=== PATIENT | male | born 1975 | race Caucasian/White ===

== ENCOUNTER 2018-06-26 16:08 | Outpatient (CLI) | payer BC, SELFPAY ==
--- NOTE | 2018-06-26 15:04 | DI.RAD_ITS ---
SYMPTOMS/DIAGNOSIS: ACUTE LEFT ANKLE PAIN AND SWELLING, M13.197, MONOARTHRITIS , NOT ELSEWHERE CLASSIFIED, UNSPECIFIED ANKLE AND FOOT LEFT ANKLE: There is soft tissue swelling around the malleoli. No fracture or ankle mortise widening is seen. The joint space is well maintained. There is a small heel spur. IMPRESSION: Soft tissue swelling and small heel spur.
[2018-06-26 15:31] LABS: Bilirubin Small (Negative); Blood Negative (Negative); Clarity Clear; Glucose Negative (Negative); Ketones Trace mg/dL (Negative); Leukocyte Esterase Trace (Negative); Nitrite Negative (Negative); Specific Gravity 1.025 (1.005-1.025); Urobilinogen 0.2 EU/dL (Up TO 0.2); pH 5.5 (5-8)
[2018-06-26 15:34] LABS: Abs Immature Grans 0.02 k/cumm (0.0-0.09); Absolute Basophil Count 0.05 k/cumm (0.0-0.2); Absolute Eosinophil Count 0.24 k/cumm (0.0-0.7); Absolute Lymphocyte Count 2.88 k/cumm (1.2-3.4); Absolute Monocyte Count 0.67 k/cumm (0.11-0.7); Absolute Neutrophil Count 4.58 k/cumm (1.2-6.7); Basophils % 0.6; Eosinophils % 2.8; HCT 49.3 % (40.0-50.0); HGB 16.6 g/dL (13.5-17.5); Immature Grans % 0.2; Lymphocytes % 34.1; Mean Corp. HGB Concentration 33.7 g/dL (32.0-36.0); Mean Corpuscular Hemoglobin 30.9 pg (27.0-33.0); Mean Corpuscular Volume 91.6 fL (80-95); Mean Platelet Volume 10.7 fL (8.0-11.0); Monocytes % 7.9; Neutrophils % 54.4; Platelet Count 289 x1000/uL (130-400); RBC 5.38 m/cumm (4.50-6.00); RBC Distribution Width 13.6 % (11.8-14.1); White Blood Cell Count 8.44 k/cumm (4.4-10.8)
[2018-06-26 15:47] LABS: Bacteria Rare HPF (Negative); C & S Indicated? No/Sq. Contamination; Casts Negative LPF (Negative); Crystals Negative HPF (Negative); Epithelial Cells Many HPF (Negative); Mucus Moderate (Negative)
[2018-06-26 17:04] LABS: ALT 25 U/L (12-78); AST 17 U/L (15-37); Albumin 3.8 g/dL (3.4-5.0); Alkaline Phosphatase 91 U/L (46-116); Anion Gap 11.6 mmol/L (3-11); BUN 12 mg/dL (7-18); Bilirubin, Total 0.3 mg/dL (0.2-1.0); CO2 25.4 mmol/L (21.0-32.0); CREATININE 0.85 mg/dL (0.70-1.30); Calcium 8.8 mg/dL (8.5-10.1); Chloride 106 mmol/L (98-107); Glucose 92 mg/dL (70-100); Potassium 4.4 mmol/L (3.5-5.1); Sodium 143 mmol/L (136-145); Uric Acid 8.3 mg/dL (3.5-7.2)
[2018-06-26 18:47] LABS: ESR 10 MM/HR (0-15)
[2018-06-29 13:03] LABS: Lyme Ab w Rflx to Lyme Confirm Negative
== END 2018-06-26 16:28 ==
PROVIDERS: PCP Family Medicine; Visit Provider Family Medicine
DX: M25.572 Pain in left ankle and joints of left foot (principal); M13.172 Monoarthritis, not elsewhere classified, left ankle and foot; M77.32 Calcaneal spur, left foot; M79.89 Other specified soft tissue disorders
CPT/HCPCS: 36415; 80053; 85652; 73610; 81003; 81015; 84550; 85025; 86618

== ENCOUNTER 2018-07-17 02:53 | Outpatient (CLI) | payer BC, SELFPAY ==
[2018-07-17 12:27] LABS: Bilirubin Negative (Negative); Blood Negative (Negative); Clarity Clear; Glucose Negative (Negative); Ketones Negative (Negative); Leukocyte Esterase Trace (Negative); Nitrite Negative (Negative)
[2018-07-17 12:39] LABS: Bacteria Moderate HPF (Negative); C & S Indicated? No/Sq. Contamination; Casts Negative LPF (Negative); Crystals Negative HPF (Negative); Epithelial Cells Moderate HPF (Negative); Mucus Moderate (Negative); RBC Negative (0-2); WBC >50 HPF (0-5)
== END 2018-07-17 03:13 ==
PROVIDERS: PCP Family Medicine; Visit Provider Family Medicine
DX: M10.9 Gout, unspecified (principal); R82.90 Unspecified abnormal findings in urine
CPT/HCPCS: 81003; 81015; 87086

== ENCOUNTER 2019-08-23 11:33 | Outpatient (CLI) | payer BC, SELFPAY ==
[2019-08-23 12:59] LABS: Abs Immature Grans 0.02 k/cumm (0.0-0.09); Absolute Basophil Count 0.04 k/cumm (0.0-0.2); Absolute Eosinophil Count 0.18 k/cumm (0.0-0.7); Absolute Lymphocyte Count 2.37 k/cumm (1.2-3.4); Absolute Monocyte Count 0.57 k/cumm (0.11-0.7); Absolute Neutrophil Count 6.06 k/cumm (1.2-6.7); Basophils % 0.4; Eosinophils % 1.9; HCT 53.2 % (40.0-50.0); HGB 17.5 g/dL (13.5-17.5); Immature Grans % 0.2; Lymphocytes % 25.6; Mean Corp. HGB Concentration 32.9 g/dL (32.0-36.0); Mean Corpuscular Hemoglobin 30.8 pg (27.0-33.0); Mean Corpuscular Volume 93.5 fL (80-95); Mean Platelet Volume 11.6 fL (8.0-11.0); Monocytes % 6.2; Neutrophils % 65.7; Platelet Count 256 x1000/uL (130-400); RBC 5.69 m/cumm (4.50-6.00); RBC Distribution Width 13.8 % (11.8-14.1); White Blood Cell Count 9.24 k/cumm (4.4-10.8)
[2019-08-23 13:30] LABS: ALT 42 U/L (16-63); AST 18 U/L (15-37); Alkaline Phosphatase 84 U/L (46-116); Anion Gap 7.9 mmol/L (3-11); BUN 9 mg/dL (7-18); Bilirubin, Total 0.6 mg/dL (0.2-1.0); CO2 29.1 mmol/L (21.0-32.0); CREATININE 0.97 mg/dL (0.70-1.30); Calcium 9.1 mg/dL (8.5-10.1); Calculated LDL 119 mg/dL; Chloride 106 mmol/L (98-107); Cholesterol 180 mg/dL (50-200); Glucose 98 mg/dL (70-100); HDL Cholesterol 40 mg/dL (40-60); Potassium 5.1 mmol/L (3.5-5.1); Sodium 143 mmol/L (136-145); Total Protein 7.1 g/dL (6.4-8.2); Triglyceride 108 mg/dL (30-150)
[2019-08-23 13:56] LABS: Uric Acid 8.6 mg/dL (3.5-7.2)
== END 2019-08-23 11:53 ==
PROVIDERS: PCP Family Medicine; Visit Provider Family Medicine
DX: Z00.00 Encounter for general adult medical examination without abnormal findings (principal); Z13.220 Encounter for screening for lipoid disorders; Z13.228 Encounter for screening for other metabolic disorders; Z13.0 Encounter for screening for diseases of the blood and blood-forming organs and certain disorders involving the immune mechanism
CPT/HCPCS: 36415; 80053; 80061; 84550; 85025